=== PATIENT | male | born 1960 | race Caucasian/White ===

== ENCOUNTER 2022-03-09 04:38 | Emergency (ER) | payer MEDICARE ==
[~2022-03-09] VITALS: Ht 172.7 cm; Wt 70.5 kg
[2022-03-09 05:44] VITALS: BP 129/76
[2022-03-09] MEDS ORDERED: KETOROLAC TROMETHAMINE 60 MG/2 ML VIAL IM ONE (06:30)
[2022-03-09] MEDS ORDERED: IBUP-2070 PO (06:31)
[2022-03-09] MEDS ORDERED: PERCT PO (06:32)
[2022-03-09] MEDS ORDERED: CYCL-448 PO (06:32)
== END 2022-03-09 06:41 | disposition home or self-care (01) ==
LOC: EMS 04:40
DX: S39.012A Strain of muscle, fascia and tendon of lower back, initial encounter (principal); M54.32 Sciatica, left side; F10.20 Alcohol dependence, uncomplicated; I10 Essential (primary) hypertension; F12.10 Cannabis abuse, uncomplicated; X58.XXXA Exposure to other specified factors, initial encounter; Y93.89 Activity, other specified; Y92.89 Other specified places as the place of occurrence of the external cause; Y99.8 Other external cause status
CPT/HCPCS: 96372; 99283; J1885